=== PATIENT | female | born 1985 | race Caucasian/White ===

== ENCOUNTER 2017-09-09 13:10 | Emergency (ER) | payer OTHER ==
--- NOTE | 2017-09-09 13:20 | UC ---
Complaint Female HPI - HPI Summary HPI Summary: 31 yo female presents with urinary burning and frequency for the last 2-3 days. She tells me that 1 week [place] and had a tampon in. Over the last few days has developed urinary frequency and burning. Hasn't had a UTI in many years, but says it feels the same. Denies fever, chills, abdominal pain , n/v/d/c, or flank pain. - History Of Current Complaint Stated Complaint: URINARY ISSUE Time Seen by Provider: 09/09/17 13:20 Hx Obtained From: Patient Onset/Duration: Gradual Onset Timing: Constant Severity Initially: Moderate Severity Currently: Severe Pain Intensity: 7 Pain Scale Used: 0-10 Numeric - Allergies/Home Medications Allergies/Adverse Reactions: Allergies Allergy/AdvReac Type Severity Reaction Status Date / Time No Known Allergies Allergy Verified 09/09/17 13:34 Home Medications: Home Medications Control 1 tab PO DAILY 09/09/17 [History] PMH/Surg Hx/FS Hx/Imm Hx - Additional Past Medical History Additional PMH: None Previously Healthy: Yes - Family History Known Family History: Positive: None - Social History Occupation: Employed Full-time Lives: With Family Alcohol Use: None Substance Use Type: None - Immunization History Most Recent Influenza Vaccination: 01/23/13 Most Recent Tetanus Shot: 04/18/13 Most Recent Pneumonia Vaccination: na Review of Systems Constitutional: Negative Skin: Negative Respiratory: Negative Cardiovascular: Negative Gastrointestinal: Negative Genitourinary: Dysuria, Frequency, Urgency Neurovascular: Negative Neurological: Negative Psychological: Negative All Other Systems Reviewed And Are Negative: Yes Physical Exam - Summary Physical Exam Summary: GENERAL: NAD. WDWN. No pain distress. SKIN: No rashes, sores, lesions, or open wounds. NECK: Supple. Nontender. No lymphadenopathy. CHEST: CTAB. No r/r/w. No accessory muscle use. Breathing comfortably and in no distress. CV: RRR. Without m/r/g. Pulses intact. Brisk cap refill. ABDOMEN: Soft. NTTP. No distention or guarding. No organomegaly. No CVA tenderness. Bowel sounds present NEURO: Alert. CN II-XII grossly intact. PSYCH: Age appropriate behavior. Triage Information Reviewed: Yes Vital Signs: Vital Signs: Temp Pulse Resp BP Pulse Ox 98.2 F 82 18 106/79 100 09/09/17 13:29 09/09/17 13:29 09/09/17 13:29 09/09/17 13:29 09/09/17 13:29 Laboratory Tests 09/09/17 13:45 POC Urine Color Yellow POC Urine Clarity Cloudy POC Urine pH 6.0 POC Ur Specif [facility] 1.025 POC Urine Protein 1+ A POC Ur Glucose (UA) Negative POC Urine Ketones Negative POC Urine Blood Trace-intact A POC Urine Nitrite Negative POC Urine Bilirubin Negative POC Urine Urobilinogen 0.2 POC U Leukocyte Esteras 1+ A Vital Signs Reviewed: Yes Complaint Female Dx - Course Course Of Treatment: negative. UA with signs of UTI. Will treat with macrobid and send for culture. - Differential Dx/Diagnosis Provider Diagnoses: UTI Discharge - Sign-Out/Discharge Documenting (check all that apply): Discharge/Admit/Transfer - Discharge Plan Condition: Stable Disposition: HOME Prescriptions: Nitrofurantoin Monohyd/M-Cryst [Macrobid 100 mg Capsule] 100 mg PO BID #10 cap Patient Education Materials: Urinary Tract Infection in Women (DC) Referrals: Rosibel Cerna NP [Primary Care Provider] - Additional Instructions: If you develop a fever, shortness of breath, chest pain, new or worsening symptoms - please call your PCP or go to the ED. - Billing Disposition and Condition Condition: STABLE Disposition: Home
[2017-09-09 13:34] VITALS: BP 106/79
--- NOTE | 2017-09-12 17:58 | UC ---
- Progress Note Progress Note: Urine with few enterobacteriacae possibly representing contamination. Please call pt - if feeling better, may continue antibiotic. If not feeling better - should be re-evaluated. Discharge - Sign-Out/Discharge Documenting (check all that apply): Post-Discharge Follow Up - Discharge Plan Condition: Stable Disposition: HOME Prescriptions: Nitrofurantoin Monohyd/M-Cryst [Macrobid 100 mg Capsule] 100 mg PO BID #10 cap Patient Education Materials: Urinary Tract Infection in Women (DC) Referrals: Rosibel Cerna NP [Primary Care Provider] - Additional Instructions: If you develop a fever, shortness of breath, chest pain, new or worsening symptoms - please call your PCP or go to the ED. - Billing Disposition and Condition Condition: STABLE Disposition: Home
== END 2017-09-09 14:00 | disposition home or self-care (01) ==
LOC: UCEAST 13:10
DX: N39.0 Urinary tract infection, site not specified (principal)
CPT/HCPCS: 81003; 84702; 87086; 99212; G0463

== ENCOUNTER 2017-09-28 08:38 | Emergency (ER) | payer OTHER ==
[2017-09-28 08:53] VITALS: BP 110/70
--- NOTE | 2017-09-28 09:15 | UC ---
Complaint Female HPI - HPI Summary HPI Summary: The patient is a 31-year-old female with a one-week history of vaginal discharge and mild itching. She has no dysuria urgency or frequency. Apparently weeks ago she was treated for a presumed UTI. Urine culture is not consistent with a UTI. She has had BV the past. She has no back pain. She has some very mild pelvic discomfort. - History Of Current Complaint Chief Complaint: UCGU Stated Complaint: RECHECK URINARY ISSUE Time Seen by Provider: 09/28/17 09:15 Hx Obtained From: Patient Hx Last Menstrual Period: 09/20/2017 Onset/Duration: Gradual Onset Timing: Constant Severity Initially: Mild Severity Currently: Mild Pain Intensity: 0 Character: Not Applicable Aggravating Factor(s): Nothing Associated Signs And Symptoms: Positive: Vaginal Discharge Related Hx: Similar Episode/Dx as: - BV - Allergies/Home Medications Allergies/Adverse Reactions: Allergies Allergy/AdvReac Type Severity Reaction Status Date / Time No Known Allergies Allergy Verified 09/28/17 08:45 PMH/Surg Hx/FS Hx/Imm Hx Previously Healthy: Yes - Surgical History Surgical History: None - Family History Known Family History: Positive: Hypertension - Social History Alcohol Use: Weekly Substance Use Type: None Smoking Status (MU): Never Smoked Tobacco - Immunization History Most Recent Influenza Vaccination: 01/23/13 Most Recent Tetanus Shot: 04/18/13 Most Recent Pneumonia Vaccination: na Review of Systems Constitutional: Negative Skin: Negative Eyes: Negative ENT: Negative Respiratory: Negative Cardiovascular: Negative Gastrointestinal: Negative Genitourinary: Other - vaginal dc and itch Motor: Negative Neurovascular: Negative Musculoskeletal: Negative Neurological: Negative Psychological: Negative Is Patient Immunocompromised?: No All Other Systems Reviewed And Are Negative: Yes Physical Exam Triage Information Reviewed: Yes Appearance: Well-Appearing, No Pain Distress, Well-Nourished Vital Signs: Initial Vital Signs Temp 98.6 F 09/28/17 08:47 Pulse 85 09/28/17 08:47 Resp 18 09/28/17 08:47 BP 110/70 09/28/17 08:47 Pulse Ox 99 09/28/17 08:47 Vital Signs Reviewed: Yes Eyes: Positive: Conjunctiva Clear ENT: Negative: Nasal congestion, Nasal drainage, Trismus, Muffled voice, Hoarse voice Neck: Positive: Supple, Nontender Respiratory: Positive: Lungs clear Cardiovascular: Positive: RRR, No Murmur Abdomen Description: Positive: Nontender, No Organomegaly, Soft. Negative: CVA Tenderness (R), CVA Tenderness (L) Pelvic Exam: Positive: External Exam Normal, Bimanual Exam Normal, No Cerv. Motion Tender, No Masses, Discharge - moderate thin whitish d/c, NOT curdy Musculoskeletal: Positive: ROM Intact, No Edema Neurological: Positive: Alert Psychological Exam: Normal Skin Exam: Normal Complaint Female Dx - Differential Dx/Diagnosis Provider Diagnoses: vaginitis. suspect BV Discharge - Sign-Out/Discharge Documenting (check all that apply): Patient Departure - Discharge Plan Condition: Stable Disposition: HOME Prescriptions: metroNIDAZOLE [Flagyl 500 MG TAB] 500 mg PO BID #14 tab Patient Education Materials: Vaginitis (ED) Referrals: Rosibel Cerna NP [Primary Care Provider] - Additional Instructions: I suspect you have bacterial vaginosis We will treat you for that tests are pending - Billing Disposition and Condition Condition: STABLE Disposition: Home
== END 2017-09-28 09:45 | disposition home or self-care (01) ==
LOC: UCEAST 08:38
DX: N76.0 Acute vaginitis (principal)
CPT/HCPCS: 81003; 87480; 87491; 87510; 87591; 87661; 99212; G0463

== ENCOUNTER 2017-10-24 18:09 | Emergency (ER) | payer OTHER ==
[2017-10-24 18:34] VITALS: BP 113/76
--- NOTE | 2017-10-24 19:01 | UC ---
Complaint Female HPI - HPI Summary HPI Summary: The pt is a 32 y/o female presenting to c/o of dysuria since 1 month ago worsened this morning.She was seen a month ago for a UTI and given Flagyl. She completed the medication and additional abx to no relief. The pt notes pain with urination and R inguinal pain but denies any vaginal discharge/ bleeding, fevers, chills, loss of appetite, constipation, and flank pain. She has been tested previously for STIs with negative results. - History Of Current Complaint Chief Complaint: UCAbdominalPain Stated Complaint: BURNING URINATION AND ABDOMINAL PAIN Time Seen by Provider: 10/24/17 18:36 Hx Obtained From: Patient Hx Last Menstrual Period: 10/18/17 Onset/Duration: Gradual Onset, Lasting Weeks - 4 weeks, Still Present, Worse Since - Today Timing: Constant Severity Currently: Moderate Pain Intensity: 6 Pain Scale Used: 0-10 Numeric Aggravating Factor(s): Urination Alleviating Factor(s): Meds - Prescribed abx Associated Signs And Symptoms: Positive: Negative - chills , loss of appetite, constipation, and flank pain. Negative: Fever, Vaginal Bleeding/Discharge Related Hx: Similar Episode/Dx as: - The last UTI episode 1 month ago - Allergies/Home Medications Allergies/Adverse Reactions: Allergies Allergy/AdvReac Type Severity Reaction Status Date / Time No Known Allergies Allergy Verified 10/24/17 18:34 PMH/Surg Hx/FS Hx/Imm Hx Previously Healthy: Yes - Denies any hx of DM, HTN and AL - Surgical History Surgical History: None - Family History Known Family History: Positive: Hypertension - Social History Occupation: Employed Full-time Lives: With Family Alcohol Use: Weekly Substance Use Type: None Smoking Status (MU): Never Smoked Tobacco - Immunization History Most Recent Influenza Vaccination: 01/23/13 Most Recent Tetanus Shot: 04/18/13 Most Recent Pneumonia Vaccination: na Review of Systems Constitutional: Negative - Fever, chils Gastrointestinal: Negative - Loss of appetite, constipation, flank pain Genitourinary: Dysuria - Vaginal discharge, Other - Positive: R inguinal pain All Other Systems Reviewed And Are Negative: Yes Physical Exam - Summary Physical Exam Summary: General: well-appearing, no pain distress Skin: warm, color reflects adequate perfusion, dry Head: normal Eyes: EOMI, KAREN ENT: normal Neck: supple, nontender Respiratory: CTA, breath sounds present Cardiovascular: RRR Abdomen: soft, nontender Bowel: present Musculoskeletal: normal, strength/ROM intact Neurological: sensory/motor intact, A&O x3 Psychological: affect/mood appropriate Triage Information Reviewed: Yes Vital Signs: Initial Vital Signs Temp 98.3 F 10/24/17 18:24 Pulse 77 10/24/17 18:24 Resp 18 10/24/17 18:24 BP 113/76 10/24/17 18:24 Pulse Ox 100 10/24/17 18:24 Vital Signs Reviewed: Yes Complaint Female Dx - Course Course Of Treatment: PRIOR URINE CX, 09/09/17, GREW OUT "FEW ENTEROBACTERIACAE". RX MACROBID 100MG PO BID X 5 DAYS. SX IMPROVED BUT THEN RETURNED AFTER THE MACROBID FINISHED. 09/28/17 PELVIC; NEGATIVE GONORRHEA, CHLAMYDIA, GARDNERELLA, TRICHOMONAS AND OLI. PATIENT COMPLETED FLAGYL 500MG PO BID FOR 7 DAYS. SX RESOLVED DURING HER RECENT PERIOD BUT, HAVE RETURNED. WILL RX MACROBID FOR 10 DAYS NOW AND SENT URINE FOR CX. F/U PMD; RECHECK SOONER IF WORSE. - Differential Dx/Diagnosis Provider Diagnoses: DYSURIA. UTI Discharge - Sign-Out/Discharge Documenting (check all that apply): Patient Departure - DC All imaging exams completed and their final reports reviewed: No Studies - Discharge Plan Condition: Stable Disposition: HOME Prescriptions: Nitrofurantoin Monohyd/M-Cryst [Macrobid 100 mg Capsule] 100 mg PO BID #20 cap Patient Education Materials: Urinary Tract Infection in Women (ED), Dysuria (ED ) Referrals: Rosibel Cerna NP [Primary Care Provider] - Additional Instructions: FOLLOW UP WITH YOUR DOCTOR. GET RECHECKED FOR ANY WORSENING OF YOUR CONDITION OR QUESTIONS OR CONCERNS. - Billing Disposition and Condition Condition: STABLE Disposition: Home - Attestation Statements Document Initiated by Scribe: Yes Documenting Scribe: Narcisa Lai Provider For Whom Scribe is Documenting (Include Credential): Dr. Eugenio Tovar MD Scribe Attestation: Narcisa Valladares , scribed for Dr. Eugenio Tovar MD on 10/24/17 at 2004. Scribe Documentation Reviewed: Yes Provider Attestation: The documentation as recorded by the scribe, Narcisa Chepkemoi accurately reflects the service I personally performed and the decisions made by me, Dr. Eugenio Tovar MD
--- NOTE | 2017-10-26 15:55 | UC ---
- Progress Note Progress Note: 10/26/2017 Urine culture positive for E. coli. Pt Rx Macrobid which cover E.Coli. waiting culture sensitivity. No change Maia Barron PA-C Discharge - Sign-Out/Discharge Documenting (check all that apply): Patient Departure - D/c home All imaging exams completed and their final reports reviewed: No Studies - Discharge Plan Condition: Stable Disposition: HOME Prescriptions: Nitrofurantoin Monohyd/M-Cryst [Macrobid 100 mg Capsule] 100 mg PO BID #20 cap Patient Education Materials: Urinary Tract Infection in Women (ED), Dysuria (ED ) Referrals: Rosibel Cerna NP [Primary Care Provider] - Additional Instructions: FOLLOW UP WITH YOUR DOCTOR. GET RECHECKED FOR ANY WORSENING OF YOUR CONDITION OR QUESTIONS OR CONCERNS. - Billing Disposition and Condition Condition: STABLE Disposition: Home
== END 2017-10-24 19:15 | disposition home or self-care (01) ==
LOC: UCEAST 18:09
DX: R30.0 Dysuria (principal); N39.0 Urinary tract infection, site not specified
CPT/HCPCS: 81003; 84702; 87077; 87086; 87186; 99212; G0463

== ENCOUNTER 2020-09-03 12:33 | Observation (INO) ==
[~2020-09-03 12:33] MED LIST: Clindamycin 900 MG/D5W BAG IVPB ONE; HYDROmorphone PCA 20 MG/20 ML PCA.SYRING PCA SCH; NS 0.9% 1000 ml BAG 1,000 ML IVPB SCH
[2020-09-03] MEDS ORDERED: Heparin 2 UNITS/ML IVPREMIX 3,000 UNIT/1,500 ML BAG IV ONE (13:14)
[2020-09-03] MEDS ORDERED: Lidocaine 1% VIAL 10 MG/ML VIAL ONE (13:14)
[2020-09-03] MEDS ORDERED: Iohexol 350 (CONTRAST) 200 ML MDV IV ONE ×2 (13:14→14:37)
[2020-09-03] MEDS ORDERED: Ondansetron 4 mg VIAL 2 MG/ML 2 ml VIAL ONE (13:25)
[2020-09-03] MEDS ORDERED: oxyCODONE SR 10 mg TAB ONE (13:25)
[2020-09-03 13:30] LABS: Hematocrit 26 % (35-47); Hemoglobin 8.3 g/dL (12.0-16.0); Mean Corpuscular HGB Conc 32 g/dL (31-36); Mean Corpuscular Hemoglobin 24 pg (27-31); Mean Corpuscular Volume 76 fL (80-97); Platelet Count 468 10^3/uL (150-450); Red Blood Count 3.46 10^6 /uL (3.70-4.87); Red Cell Distribution Width 26 % (10-15); White Blood Count 8.6 10^3/uL (3.5-10.8)
[2020-09-03 13:38] LABS: Activated Partial Thrombo Time 25.6 seconds (26.0-38.0); INR 0.95 (0.86-1.15)
[2020-09-03 14:05] LABS: ABS Basophils 0.2 10^3/ul (0-0.2); ABS Eosinophils 0.1 10^3/ul (0-0.6); ABS Lymphocytes 2.1 10^3/ul (1.0-4.8); ABS Monocytes 0.4 10^3/ul (0-0.8); ABS Neutrophils 5.8 10^3/ul (1.5-7.7); Eosinophil % 1.1 %
[2020-09-03 14:07] LABS: Anion Gap 10 mmol/L (2-11); Blood Urea Nitrogen 13 mg/dL (6-24); CO2 Carbon Dioxide 21 mmol/L (22-32); Calcium 8.9 mg/dL (8.6-10.3); Chloride 104 mmol/L (101-111); EGFR African American 120.5 (>60); EGFR Non-African American 99.6 (>60); Glucose 79 mg/dL (70-100); Potassium 3.8 mmol/L (3.5-5.0); Sodium 135 mmol/L (135-145)
[2020-09-03 14:13] LABS: HCG Pregnancy < 0.60 mIU/mL
[2020-09-03] MEDS ORDERED: Midazolam 5 mg/5 ml VIAL 1 mg/ml 5 ml VIAL (5 mg) ONE (14:25)
[2020-09-03] MEDS ORDERED: fentaNYL 100 mcg/2 ml 50 MCG/ML VIAL ONE (14:26)
[2020-09-03] MEDS ORDERED: nitroGLYCERIN DRIP 0 MCG/0 ML BTL ONE (14:27)
[2020-09-03] MEDS ORDERED: Gelfoam Sponge SIZE 100 SPONGE ONE (14:28)
[2020-09-03] MEDS ORDERED: HYDROmorphone 1 MG/1 ML SYRINGE ONE (15:37)
[2020-09-03] MEDS ORDERED: Prochlorperazine 5 mg/ml 2 ml VIAL (10 mg) ONE (15:59)
[2020-09-03] MEDS ORDERED: NS 0.9% 1,000 ML IV SCH (20:00)
[2020-09-03] MEDS: Ondansetron 4 mg VIAL 2 MG/ML 2 ml VIAL IV SCH (20:26)
[2020-09-04] MEDS: Ondansetron 4 mg VIAL 2 MG/ML 2 ml VIAL IV SCH ×2 (02:23→07:41)
[2020-09-04 06:42] LABS: Hematocrit 26 % (35-47)
[2020-09-04] MEDS ORDERED: HYDROcodone/ACETAMIN 5/325 mg TAB PO PRN (08:36)
[2020-09-04 11:19] VITALS: BP 104/64
[2020-09-04] MEDS ORDERED: Ketorolac 10 mg TAB (NF) PO SCH (13:30)
== END 2020-09-04 14:10 | disposition home or self-care (01) ==
LOC: SSU 12:33 → CHICATH 12:33
PROVIDERS: ADMIT Radiology Diagnostic Radiology; ATTEND Internal Medicine
PROC: ANG.UFE (2020-09-03 14:10)